=== PATIENT | female | born 2000 | race Caucasian/White ===

== ENCOUNTER 2023-09-19 08:37 | Inpatient (IN) | payer OTHER ==
[~2023-09-19] VITALS: Ht 167.6 cm; Wt 96.2 kg
[~2023-09-19 08:37] MED LIST: INTUNIV1 MG PO; PRENATAL TABLE1 EAC5 PO; PROAIR HFA8.5 GM INH
[2023-10-01] MEDS ORDERED: LACTATED RINGER'S 2,000 ML IV PRN (05:00)
[2023-10-01] MEDS ORDERED: LACTATED RINGER'S 1,000 ML IV SCH ×2 (05:00→08:56)
[2023-10-01 06:16] LABS: HEMATOCRIT 32.2 % (35.0-50.0); HEMOGLOBIN 10.6 g/dL (12.0-18.0); MCH 26.3 (27-36); MCHC 32.9 g/dl (30-36); MCV 79.8 fl (81-99); RBC 4.03 M/ul (4.3-5.7); RDW 14.4 (10.5-15.0)
[2023-10-01 06:48] LABS: AMPHETAMINES, URINE NEGATIVE (NEGATIVE); BARBITURATES, URINE NEGATIVE (NEGATIVE); BENZODIAZEPINE, URINE NEGATIVE (NEGATIVE); BUPRENORPHINE, URINE NEGATIVE (NEGATIVE); CANNABINOID, URINE NEGATIVE (NEGATIVE); COCAINE, URINE NEGATIVE (NEGATIVE); ECSTASY, URINE NEGATIVE (NEGATIVE); FENTANYL, URINE NEGATIVE (NEGATIVE); METHADONE, URINE NEGATIVE (NEGATIVE); OPIATES, URINE NEGATIVE (NEGATIVE); OXYCODONE, URINE NEGATIVE (NEGATIVE); PHENCYCLIDINE, URINE NEGATIVE (NEGATIVE)
[2023-10-01 06:52] LABS: ABO A; ANTIBODY SCREEN NEGATIVE; RH POSITIVE
--- NOTE | 2023-10-01 06:56 | NUR ---
REFERRED BY NURSING STAFF DURING SPIRITUAL CARE ROUNDS. DETAILED NOTE IN [facility].
[2023-10-01] MEDS ORDERED: SOD+POT BICARB/CITRIC ACID 2 EA TABLET.EFF PO SCH (07:00)
[2023-10-01] MEDS ORDERED: CEFAZOLIN SODIUM 2 GM/20 ML SYR IV SCH (07:00)
[2023-10-01] MEDS ORDERED: fentaNYL citrate 100 MCG/2 ML VIAL ONE (07:05)
[2023-10-01] MEDS ORDERED: ePHEDrine sulfate 50 MG/ML AMP ONE (07:05)
[2023-10-01] MEDS ORDERED: LIDOCAINE HCL 2% 5 ML SDV ONE (07:06)
[2023-10-01] MEDS ORDERED: BUPIVACAINE 0.75% IN DEXTROSE 2 ML AMP ONE (07:06)
[2023-10-01] MEDS ORDERED: SODIUM CHLORIDE 0.9% 20 ML IV ONE ×2 (07:06→08:30)
[2023-10-01] MEDS ORDERED: PHENYLEPHRINE HCL 10 MG/ML VIAL ONE (07:06)
[2023-10-01] MEDS ORDERED: OXYTOCIN 10 UNITS/ML VIAL ONE (08:08)
[2023-10-01] MEDS ORDERED: ondansetron HCL 4 MG/2 ML VIAL ONE (08:12)
[2023-10-01] MEDS ORDERED: DEXAMETHASONE SOD PHOS 4 MG/ML VIAL ONE ×2 (08:12→08:31)
[2023-10-01] MEDS ORDERED: Ropivacaine HCl 0.5% 30 ML VIAL ONE (08:25)
[2023-10-01] MEDS ORDERED: dexmedeTOMIDine HCl 200 MCG/2 ML VIAL ONE (08:25)
[2023-10-01] MEDS ORDERED: SODIUM CHLORIDE 0.9% 40 ML IV ONE (08:25)
[2023-10-01] MEDS ORDERED: OXYCODONE/APAP 5/325 TAB PO PRN (09:00)
[2023-10-01] MEDS ORDERED: OXYCODONE HCL 5 MG TAB PO PRN (09:00)
[2023-10-01] MEDS ORDERED: ondansetron HCL 4 MG/2 ML VIAL IV PRN ×3 (09:00→09:15)
[2023-10-01] MEDS ORDERED: PROCHLORPERAZINE EDISYLATE 10 MG/2 ML VIAL IV PRN (09:00)
[2023-10-01] MEDS ORDERED: HYDROCODONE/ACETA 5/325 TAB PO PRN (09:00)
[2023-10-01] MEDS ORDERED: SENNOSIDES/DOCUSATE 1 EA TAB PO SCH (09:00)
[2023-10-01] MEDS ORDERED: bisacodyL 10 MG SUPP PR PRN (09:00)
[2023-10-01] MEDS ORDERED: OXYTOCIN/0.9 % SODIUM CHLORIDE 500 ML IV SCH (09:00)
[2023-10-01] MEDS ORDERED: METOCLOPRAMIDE HCL 10 MG/2 ML SDV IV PRN (09:00)
[2023-10-01] MEDS ORDERED: HYDROmorphone HCL 1 MG/ML SYR IV PRN ×2 (09:15)
[2023-10-01] MEDS ORDERED: KETOROLAC TROMETHAMINE 30 MG/ML VIAL IV PRN (09:15)
[2023-10-01] MEDS ORDERED: droPERidol 5 MG/2 ML VIAL IV PRN (09:15)
[2023-10-01] MEDS ORDERED: MORPHINE SULFATE 4 MG/ML VIAL IV PRN (09:15)
[2023-10-01] MEDS ORDERED: fentaNYL citrate 50 MCG/ML SDV IV PRN (09:15)
[2023-10-01] MEDS ORDERED: IBLOOD GLUCOSE TEST STRIP 1 EA TEST VI PRN (09:15)
[2023-10-01] MEDS ORDERED: NALOXONE HCL 0.4 MG SYR IV PRN ×2 (09:15)
[2023-10-01] MEDS ORDERED: diphenhydrAMINE HCL 50 MG/ML VIAL IV PRN ×2 (09:15)
[2023-10-01 09:23] VITALS: BP 121/61
--- NOTE | 2023-10-01 10:06 | NUR ---
10/01/23 1006 Sheets,Gena 0837 PT ARRIVED TO PACU ON RA WITH BABY AND MOTHER AT BEDSIDE. IV IN LEFT HAND AND WNL, INFUSING LR WITH 20 PIT. VSS. HOB INCREASED SLGIHTLY. 901 BABY TO CHEST WITH [facility] RN. PT DENIES PAIN, "I AM JUST REALLY TINGLY IN MY LEGS AND BUTT." SPINAL EDUCATION GIVEN. 919 HOB INCREASED, PT RESTING IN BED AND DENIES CONCERNS. PT ABLE TO MOVE LEGS SOME. BED PLUGGED IN AND CALL LIGHT PLACED. VSS. REPORT TO [facility] RN.
[2023-10-01] MEDS ORDERED: SIMETHICONE 125 MG TABLET CHEWABLE PO SCH (11:00)
[2023-10-01] MEDS ORDERED: KETOROLAC TROMETHAMINE 30 MG/ML VIAL IV SCH (14:00)
[2023-10-01] MEDS ORDERED: ENOXAPARIN SODIUM 40 MG/0.4 ML SYR SUB-Q SCH (16:00)
[2023-10-02 05:39] LABS: HEMATOCRIT 25.7 % (35.0-50.0); HEMOGLOBIN 8.4 g/dL (12.0-18.0); MCH 26.3 (27-36); MCHC 32.8 g/dl (30-36); MCV 80.1 fl (81-99); RBC 3.21 M/ul (4.3-5.7); RDW 14.7 (10.5-15.0)
[2023-10-02] MEDS ORDERED: CEFAZOLIN SODIUM 2 GM/20 ML SYR IV SCH (07:00)
[2023-10-02] MEDS ORDERED: SOD+POT BICARB/CITRIC ACID 2 EA TABLET.EFF PO SCH (07:00)
--- NOTE | 2023-10-02 09:12 | PR ---
[facility] [address] [place], [place] [address] Signed PP Progress Notes Datetime Report Generated by CPN: 10/02/2023 09:12 SUBJECTIVE: [id number] Pain: Within Normal Limits Nausea/Vomiting: Denies Flatus: Yes Bowel Movement: No Vital Signs: [id number] Vital Signs: Reviewed; Within Normal Limits Cardiovascular: Normal Respiratory: Normal Abdomen/Uterus: Normal Lochia: Normal Vulva/Perineum: Not Done Breasts: Not Done CVA Tenderness: Normal Extremities: Normal Incision: Normal Progress: Normal Exam Comments: Fundus firm U-2 nontender IMPRESSION/PLAN/PROCEDURES: [id number] Impression: Normal Progression Plan: Continue Present Management Progress Notes: Pt seen and examined. Doing well. Ambulating voiding, and tolerating full diet. Pain and lochia minimal. . No concerns. Anticipate d/c home tomorrow. Signing Physician: Juan Gutiérrez DO Copies: ~ *Electronically Signed* 10/02/23 09 JUAN GUTIÉRREZ (DARION) DO PATIENT NAME: STACYROGER PROGRESS NOTE DATE OF : 02 PHYSICIAN: JUAN GUTIÉRREZ (DARION) DO RPT #: [id number] REPORT IS CONFIDENTIAL AND NOT TO BE RELEASED WITHOUT AUTHORIZATION
[2023-10-02] MEDS ORDERED: ondansetron HCL 4 MG/2 ML VIAL IV PRN (09:15)
--- NOTE | 2023-10-02 13:51 | NUR ---
VISITED PT DURING SPIRITUAL CARE ROUNDS. DETAILED NOTE IN [facility].
[2023-10-02] MEDS ORDERED: IBUPROFEN 600 MG TAB PO SCH (14:00)
--- NOTE | 2023-10-03 07:22 | PR ---
[facility] [address] [place], [place] [address] Signed PP Progress Notes Datetime Report Generated by CPN: 10/03/2023 07:21 SUBJECTIVE: [id number] Pain: Within Normal Limits Nausea/Vomiting: Denies Flatus: Yes Bowel Movement: No Vital Signs: [id number] Vital Signs: Reviewed; Within Normal Limits Cardiovascular: Normal Respiratory: Normal Abdomen/Uterus: Normal Lochia: Normal Vulva/Perineum: Not Done Breasts: Not Done CVA Tenderness: Normal Extremities: Normal Incision: Normal Progress: Normal Exam Comments: Fundus firm U-2 nontender IMPRESSION/PLAN/PROCEDURES: [id number] Impression: Normal Progression Plan: Discharge Progress Notes: Pt seen and examined. Doing well. Ambulating, voiding, and tolerating full diet. Pain and lochia minimal. . No fevers/chills or other concerns. Desires d/c home today. Reviewed d/c instructions and medications. All questions answered. Signing Physician: Juan Gutirérez DO Copies: ~ *Electronically Signed* 10/03/23 07 JUAN GUTIÉRREZ (DARION) DO PATIENT NAME: ROGER KUMAR PROGRESS NOTE DATE OF : 02 PHYSICIAN: JUAN GUTIÉRREZ) DO RPT #: [id number] REPORT IS CONFIDENTIAL AND NOT TO BE RELEASED WITHOUT AUTHORIZATION
== END 2023-10-03 13:20 | disposition home or self-care (01) | DRG 788 ==
LOC: FBC 10-01 05:35
PROVIDERS: ADMIT Obstetrics & Gynecology; ATTEND Obstetrics & Gynecology
PROC: 10D00Z1 Extraction of Products of Conception, Low, Open Approach (ICD-10-PCS; principal; 2023-10-01 07:30)
DX: O69.81X0 Labor and delivery complicated by cord around neck, without compression, not applicable or unspecified (principal); Z3A.39 39 weeks gestation of pregnancy; Z37.0 Single live birth
CPT/HCPCS: 01961; 36415; 76942; 80307; 85027; 85060; 86850; 86900; 86901; A9270; J0690; J1100; J1650; J1885; J2001; J2371; J2405; J2590; J2795; J3010; J7121